=== PATIENT | female | born 1965 | race Caucasian/White ===

== ENCOUNTER 2024-09-18 18:02 | Emergency (ER) | payer SELFPAY ==
[~2024-09-18] VITALS: Ht 160 cm; Wt 77.1 kg
[2024-09-18] MEDS ORDERED: IOHEXOL 350 MG/ML 100 ML VIAL IV ONE (18:35)
[2024-09-18] MEDS ORDERED: SODIUM CHLORIDE 0.9% 100 ML BAG IV ONE (18:35)
[2024-09-18 18:47] LABS: BASO # 0.1 10*3/uL (0.0-0.1); BASO % 1.0 % (0.0-1.0); EOS # 0.2 10*3/uL (0.0-0.4); EOS % 2.1 % (1.0-4.0); MEAN CELL VOLUME 90.8 fl (81.0-99.0); MEAN CORPUSCULAR HGB 29.8 pg (27.0-31.0); MEAN PLATELET VOLUME 10.6 fl (9.6-12.3); MONO # 0.6 10*3/uL (0.1-1.0); MONO % 7.6 % (3.0-9.0); NEUT # 4.2 10*3/uL (2.3-7.9); NEUT % 53.5 % (47.0-73.0); NUCLEATED RED BLOOD CELL 0.0 % (0.0-0.0); NUCLEATED RED BLOOD CELL 0.0 10*3/uL (0.0-0.0); PLATELET COUNT AUTOMATED 214 10*3/uL (130-400); RED CELL DISTRI WIDTH 14.0 % (0-14.5)
[2024-09-18 19:05] LABS: BUN 11 mg/dl (9-23)
[2024-09-18] MEDS ORDERED: PREDNISONE50 MG PO (19:09)
== END 2024-09-18 19:30 | disposition home or self-care (01) ==
LOC: ED 18:02
PROVIDERS: Nurse Practitioner Family
DX: M54.30 Sciatica, unspecified side (principal)